=== PATIENT | male | born 1955 | race Two or more races ===

== ENCOUNTER 2020-07-13 14:15 | Emergency (ER) | payer OTHER ==
[~2020-07-13] VITALS: Ht 170.2 cm; Wt 72.7 kg
[2020-07-13] MEDS ORDERED: LOSA50TA37 PO (14:20)
[2020-07-13] MEDS ORDERED: ASPI81TA87 PO (14:21)
[2020-07-13 14:26] VITALS: BP 109/64
== END 2020-07-13 14:57 | disposition home or self-care (01) ==
LOC: EMS 14:19
DX: B86 Scabies (principal); I10 Essential (primary) hypertension; Z79.82 Long term (current) use of aspirin
CPT/HCPCS: 99282; Z7502

== ENCOUNTER 2022-02-02 16:57 | Emergency (ER) | payer MEDICARE, OTHER ==
[~2022-02-02] VITALS: Ht 165.1 cm; Wt 95.0 kg
[~2022-02-02 16:57] MED LIST: ASPI81TA87 PO; LOSA-382 PO
[2022-02-02 17:11] VITALS: BP 110/67
== END 2022-02-02 18:15 | disposition left against medical advice (07) ==
LOC: EMS 17:09
DX: R10.30 Lower abdominal pain, unspecified (principal); Z53.21 Procedure and treatment not carried out due to patient leaving prior to being seen by health care provider

== ENCOUNTER → 2023-09-06 | Emergency (ER) | payer MEDICARE, MEDICAID ==
[~2023-09-06] VITALS: Ht 177.8 cm; Wt 77.3 kg
[2023-09-06 11:42] VITALS: TEMP 98.1
[2023-09-06 13:49] LABS: BASOPHILS % (AUTO) 0.6 % (0.0-2.0); EOSINOPHILS % (AUTO) 4.3 % (1.0-6.0); HEMATOCRIT 33.8 % (41-53); HEMOGLOBIN 11.2 g/dL (13.5-17.5); LYMPHOCYTES # (AUTO) 1.6 K/uL (1.0-4.8); MEAN CORPUSCULAR HEMOGLOBIN 30.6 pg (26.0-34.0); MEAN CORPUSCULAR HGB CONC 33.2 G/dL (31.0-37.0); MEAN CORPUSCULAR VOLUME 92 fL (80-100); MONOCYTES # (AUTO) 0.4 K/uL (0.1-1.0); MONOCYTES % (AUTO) 9.5 % (2.0-9.0); NEUTROPHILS # (AUTO) 2.3 K/uL (1.8-7.7); NEUTROPHILS % (AUTO) 50.6 % (40.0-70.0); PLATELET COUNT (AUTO) 105 K/uL (150-450); RED BLOOD CELL COUNT(AUTO) 3.67 MIL/uL (4.50-5.90); RED CELL DISTRIBUTION WIDTH 14.4 % (11.5-14.5); WHITE BLOOD COUNT (AUTO) 4.6 K/uL (4.5-11.0)
[2023-09-06 14:04] LABS: ANION GAP 0 mmol/L (8-16); CARBON DIOXIDE 32 mmol/L (22-29); CHLORIDE 105 mmol/L (98-107); CREATININE 0.72 mg/dL (0.60-1.30); GLOMERULAR FILTR. RATE CALC > 60 mL/min (>60); GLUCOSE,RANDOM 102 mg/dL (70-110); POTASSIUM 4.1 mmol/L (3.5-5.1); SODIUM SERUM 137 mmol/L (136-145); UREA NITROGEN, BLOOD 17 mg/dL (7-18)
[2023-09-06 14:05] LABS: CALCIUM, TOTAL 8.4 mg/dL (8.8-10.5)
[2023-09-06 14:10] LABS: ALANINE AMINOTRANSFERASE 14 U/L (12-78); ALBUMIN 3.3 g/dL (3.4-5.0); ALKALINE PHOSPHATASE 63 U/L (46-116); ASPARTATE AMINOTRANSFERASE 19 U/L (15-37); BILIRUBIN,TOTAL 0.5 mg/dL (0.1-1.0)
[2023-09-06 15:12] VITALS: BP 118/74; PULSE 70; RESP 16
== END | disposition home or self-care (01) ==
LOC: EMS 11:30
DX: J18.9 Pneumonia, unspecified organism (principal); R05.9 Cough, unspecified; I10 Essential (primary) hypertension
CPT/HCPCS: 71045; 80053; 85025; 93005; 99285; 36415-L1; 36415-TC